=== PATIENT | male | born 1980 | race Caucasian/White ===

== ENCOUNTER 2017-09-11 03:13 | Inpatient (IN) | payer SELFPAY ==
[~2017-09-11] VITALS: Ht 182.9 cm; Wt 56.7 kg
[2017-09-11] MEDS ORDERED: ONDANSETRON HCL/PF 4 MG/2 ML VIAL IVP ONE (03:30)
[2017-09-11] MEDS ORDERED: IV NS 0.9% 1,000 ML BAG IV ONE (03:30)
[2017-09-11] MEDS ORDERED: PHENYTOIN EXTENDED RELEASE 100 MG CAPSULE PO ONE (03:30)
[2017-09-11] MEDS ORDERED: PIOG15TA8 PO (03:38)
[2017-09-11] MEDS ORDERED: ACET-868 PO (03:38)
[2017-09-11] MEDS ORDERED: ARIP2TAB3 PO (03:38)
--- NOTE | 2017-09-11 03:41 | NUR ---
Patient is awake and alert to self, day, and place.
[2017-09-11 03:57] LABS: HEMATOCRIT 35 % (39-51); HEMOGLOBIN 11.4 g/dL (13.5-17.5); LYMPHOCYTES # (AUTO) 0.6 /CMM (0.8-4.8); LYMPHOCYTES % (AUTO) 6.8 % (20.0-44.0); MEAN CORPUSCULAR HGB CONC 33 g/dl (31.0-36.0); MEAN CORPUSCULAR VOLUME 97 fL (80-96); MONOCYTES # (AUTO) 0.7 /CMM (0.1-1.30); NEUTROPHILS % (AUTO) 86.2 % (43.0-81.0); PLATELET COUNT (AUTO) 278 /CMM (150-450); RDW COEFFICIENT OF VARIATION 14.8 (11.5-15.0); RED BLOOD CELL COUNT(AUTO) 3.58 MIL/uL (4.5-6.0); WHITE BLOOD COUNT (AUTO) 9.3 K/uL (4.3-11.0)
[2017-09-11] MEDS ORDERED: VANCOMYCIN 1 GM in IV D5W 250ml IV ONE (04:00)
[2017-09-11] MEDS ORDERED: BLOOD SUGAR DIAGNOSTIC 1 EACH STRIP IN ONE (04:00)
[2017-09-11] MEDS ORDERED: phenytoin SODIUM IV 1,000 MG in IV NS 0.9% 100 ML IV ONE (04:00)
[2017-09-11 04:29] VITALS: BP 150/60
[2017-09-11] MEDS ORDERED: ALTEPLASE 100 MG in WATER FOR INJECTION,STERILE 100 ML IV ONE (04:30)
[2017-09-11] MEDS ORDERED: MEROPENEM 1 G in IV NS 0.9% 100 ML IV ONE (04:30)
[2017-09-11] MEDS ORDERED: FUROSEMIDE 20 MG TABLET PO ONE (05:00)
[2017-09-11] MEDS ORDERED: AMPICILLIN 500 MG VIAL IM SCH (06:00)
[2017-09-12 13:27] LABS: BILIRUBIN,TOTAL 0.3 mg/dL (0.2-1.0)
[2017-09-12 13:28] LABS: ALBUMIN 2.4 g/dL (3.4-5.0); TOTAL PROTEIN, SERUM 5.7 g/dL (6.4-8.2)
[2017-09-12 13:36] LABS: INR 1.02 (0.87-1.13)
[2017-09-12 16:37] LABS: ABG BASE EXCESS -8.3 mmol/L; ABG OXYGEN SATURATION 97.8 % (92.0-98.5); ABG PCO2 75.7 mmHg (35.0-45.0); ABG PH 7.106 (7.350-7.450); ABG PO2 134.2 mmHg (75.0-100.0); COHb 6.2 % (0.5-1.5); MetHb 16.3 % (0.0-1.5); O2Hb 75.8 % (94.0-97.0); SITE, ABG LEFT ARM
== END 2017-09-11 05:11 | disposition home or self-care (01) | DRG 392 ==
LOC: ER 04:58 → ICU 05:02
PROVIDERS: ADMIT Legal Medicine; ATTEND Legal Medicine
DX: R10.9 Unspecified abdominal pain (principal); Z59.0 Homelessness
CPT/HCPCS: 36415; 36600; 80076-TC; 85025-TC; 85730-TC; A4606; J0290; J1165; J2185; J2997; J3370; J7030; J7060; Z7610